=== PATIENT | female | born 1970 | race Caucasian/White ===

== ENCOUNTER 2016-04-15 18:04 | Emergency (ER) | payer OTHER ==
--- NOTE | 2016-04-15 18:15 | ER Document Report ---
ED Medical Screen (RME) - General Stated Complaint: LEFT FOOT PAIN, SWELLING Mode of Arrival: Wheelchair Information source: Patient Notes: Pt presents to the ED for to left foot pain. She was evaluated and treated to nights ago for lacerations to the top of her foot after she dropped a mixer on it. She reports increased for pain. She reports fever of 100 last night. An xray was done the other night but foot was so swollen the xray did not show anything. I have greeted and performed a rapid initial assessment of this patient. A comprehensive ED assessment and evaluation of the patient, analysis of test results and completion of the medical decision making process will be conducted by additional ED providers.
[2016-04-15] MEDS ORDERED: DOXYCYCLINE HYCLATE 100 MG TABLET PO ONE (19:19)
[2016-04-15] MEDS ORDERED: ONDANSETRON 4 MG TAB.RAPDIS PO ONE (19:19)
[2016-04-15] MEDS ORDERED: HYDROCODONE/ACETAMINOPHEN 5-325 MG 6 TAB/DSPK PO PRN (19:24)
--- NOTE | 2016-04-15 19:24 | ER Document Report ---
ED Extremity Problem, Lower - General Chief Complaint: Foot Pain Stated Complaint: LEFT FOOT PAIN, SWELLING Mode of Arrival: Wheelchair Notes: Patient is a 46 year old female that comes to the ED for chief complaint of a recheck to the left foot. 2 days ago she dropped a spray blender on her left foot causing abrasions to the top of the foot, soft tissue swelling, a laceration between the fourth and fifth digits, and a laceration over the top of the foot. Patient states the area seems more swollen, she states that she thinks she ran a fever yesterday with a temperature of 100.0. She admits that she left without her antibiotics last time, she also has not been applying antibiotic dressing over the scratches on the foot. She states that she has been elevating the foot and trying not to walk on it. She reports the foot is throbbing in pain. Patient does not have diabetes, her tetanus was updated 2 days ago. TRAVEL OUTSIDE OF THE [place] IN LAST 30 DAYS: No - Related Data Allergies/Adverse Reactions: Penicillins Allergy (Verified 04/15/16 18:13) Sulfa (Sulfonamide Antibiotics) Allergy (Verified 04/15/16 18:13) sulfamethoxazole [From Bactrim] Allergy (Verified 04/15/16 18:13) trimethoprim [From Bactrim] Allergy (Verified 04/15/16 18:13) Past Medical History - General Information source: Patient - Social History Smoking Status: Never Smoker Chew tobacco use (# tins/day): No Frequency of alcohol use: None Drug Abuse: None Lives with: Family Family History: Reviewed & Not Pertinent Patient has suicidal ideation: No Patient has homicidal ideation: No - Medical History Medical History: Negative Renal/ Medical History: Denies: Hx Peritoneal Dialysis Surgical Hx: Negative - Immunizations Immunizations up to date: Yes Hx Diphtheria, Pertussis, Tetanus Vaccination: Yes Review of Systems - Review of Systems Constitutional: No symptoms reported EENT: No symptoms reported Cardiovascular: No symptoms reported Respiratory: No symptoms reported Gastrointestinal: No symptoms reported Genitourinary: No symptoms reported Female Genitourinary: No symptoms reported Musculoskeletal: See HPI Skin: See HPI Hematologic/Lymphatic: No symptoms reported Neurological/Psychological: No symptoms reported Physical Exam - Vital signs Interpretation: Normal - General General appearance: Appears well, Alert In distress: None - HEENT Head: Normocephalic, Atraumatic Eyes: Normal Pupils: PERRL - Respiratory Respiratory status: No respiratory distress Chest status: Nontender Breath sounds: Normal Chest palpation: Normal - Cardiovascular Rhythm: Regular Heart sounds: Normal auscultation Murmur: No - Abdominal Inspection: Normal Distension: No distension Bowel sounds: Normal Tenderness: Nontender. No: Tender, Guarding Organomegaly: No organomegaly - Back Back: Normal, Nontender. No: Tender - Extremities General lower extremity: Other - There is lateral bruising and slight soft tissue swelling over the mid foot and over the dorsal aspect of the foot, there are healing abrasions, there are 2 sutured wounds one over the medial dorsal aspect of the foot and one between the fourth and fifth digits, these do not have any concerning erythema, no abnormal tenderness, no abnormal heat or erythema, no pus drainage. Normal examination otherwise, normal neurovascular exam. - Neurological Neuro grossly intact: Yes Cognition: Normal Orientation: AAOx4 [place] Coma Scale Eye Opening: Spontaneous My Coma Scale Verbal: Oriented [place] Coma Scale Motor: Obeys Commands [place] Coma Scale Total: 15 Speech: Normal Motor strength normal: LUE, RUE, LLE, RLE Sensory: Normal - Psychological Associated symptoms: Normal affect, Normal mood - Skin Skin Temperature: Warm Skin Moisture: Dry Skin Color: Normal Course - Re-evaluation Re-evalutation: Wounds look good, no erythema, swelling, tenderness. There is some swelling over the dorsal aspect of the foot and there is some bruising noted at the bottom of the foot consistent with soft tissue swelling and suggesting that patient is walking on the foot instead of elevating the foot. Patient insists that she is not. She was provided with crutches. Patient admits that she got in an argument with her right last time and left without prescriptions, she requests the antibiotic at this time, she was provided with this, provide with some pain medication because of the amount of swelling of the foot, given instructions for care of the foot and elevation instructions, discussed return precautions, patient states understanding and agreement. - Diagnostic Test Radiology reviewed: Image reviewed, Reports reviewed Discharge - Discharge Clinical Impression: Foot swelling Foot injury Qualifiers: Encounter type: subsequent encounter Laterality: left Qualified Code(s): S99.922D - Unspecified injury of left foot, subsequent encounter Condition: Stable Disposition: HOME, SELF-CARE Additional Instructions: The sutures need to come out in 5 days from now at a medical facility. There has been bleeding and soft tissue swelling in your foot from the injury, there is no fracture in the foot, the sutured wounds do not appear to be infected at this time, however take the antibiotic as directed this time, and please apply bacitracin or Neosporin antibiotic dressing to the scratches on your foot. Use the crutches, elevate her foot, apply ice to her foot, take the naproxen anti-inflammatory along with the pain medication if needed. Return to emergency department for concerning or worsening symptoms including redness to the area, abnormal heat to the area, abnormal drainage from the scratches were wounds, fever greater than or equal to 101, or any other concerning symptoms. Prescriptions: Doxycycline Hyclate 100 mg PO BID #14 capsule Hydrocodone/Acetaminophen [Marathon 5-325 mg Tablet] 1 - 2 tab PO ASDIR #10 tablet Naproxen 500 mg PO BID #14 tablet
== END 2016-04-15 19:44 | disposition home or self-care (01) ==
LOC: ER 18:04
DX: S99.922D Unspecified injury of left foot, subsequent encounter (principal); M79.672 Pain in left foot; W20.8XXD Other cause of strike by thrown, projected or falling object, subsequent encounter; Z88.0 Allergy status to penicillin; Z88.2 Allergy status to sulfonamides; Z88.3 Allergy status to other anti-infective agents
CPT/HCPCS: 99283; 73630; S0119